=== PATIENT | female | born 1975 | race Caucasian/White ===

== ENCOUNTER 2017-10-01 19:26 | Emergency (ER) | payer MEDICAID ==
--- NOTE | 2017-10-01 20:05 | EDPHY ---
H & P Stated Complaint: Constipation Source: Patient Exam Limitations: No limitations - Personal History Current Tetanus/Diphtheria Vaccine: Unsure Current Tetanus Diphtheria and Acellular Pertussis (TDAP): Unsure - Medical/Surgical History Hx Asthma: No Hx Chronic Respiratory Disease: No Hx Diabetes: No Hx Cardiac Disease: Yes Hx Renal Disease: No Hx Cirrhosis: No Hx Alcoholism: No Hx HIV/AIDS: No Hx Splenectomy or Spleen Trauma: No Other PMH: hyperthyroidism, cardiomyopathy - Social History Smoking Status: Never smoked Time Seen by Provider: 10/01/17 20:04 HPI/ROS: HPI: This is a 42-year-old female who presents with Chief Complaint: Constipation Location: Abdomen Quality: Constipation Duration: 5 days Signs and Symptoms: no fever, no nausea, no vomiting, no hematemesis, no blood in stool, no abdominal bloating, no diarrhea, no back pain, no urinary symptoms , no vaginal bleeding/discharge, no indigestion, no chest pain, no shortness of breath Timing: Acute Severity: Moderate Context: Patient presents with complaints of not having a bowel movement x5 days despite taking [id number] laxatives. Patient reports that she has been back down to the bed for several months due to undiagnosed hyperthyroidism. She reports that every time she walked she experienced tachycardia. The recent return from [place] 2 weeks ago due to her not being able to receive treatment therapy. She reports that she is currently breast- feeding. She is drinking water but admits probably not enough. She is passing flatus. Denies any nausea, vomiting, diarrhea. No history of abdominal surgeries. Modifying Factors: Comment: ROS: see HPI Constitutional: No fever, no chills, no weight loss Eyes: No blurred vision Respiratory: No shortness of breath, no cough Cardiovascular: No chest pain, no palpitations Gastrointestinal: No nausea, no vomiting, no diarrhea, no hematemesis, no blood in stool Genitourinary: No dysuria, no blood in urine Extremities: No myalgias, no edema Neurologic: No weakness, no numbness Skin: No rashes, no petechiae Hematologic: No bruising, no bleeding MEDICAL/SURGICAL/SOCIAL HISTORY: Medical history: Hyperthyroidism, cardiomyopathy Surgical history: Denies Social history: with children. Family history noncontributory. CONSTITUTIONAL: Extremely well-appearing middle-aged female, awake and alert, no obvious distress HEENT: Atraumatic and normocephalic, PERRL, EOMI. Nares patent; no rhinorrhea; no nasal mucosal edema. Tympanic membranes clear. Oropharynx clear, no exudate and moist pink mucosa. Airway patent. No lymphadenopathy. No meningismus. Cardiovascular: Normal S1/S2, regular rate, regular rhythm, without murmur rub or gallop. PULMONARY/CHEST: Symmetrical and nontender. Clear to auscultation bilaterally. Good air movement. No accessory muscle usage. ABDOMEN: Soft, nondistended, nontender, no rebound, no guarding, no peritoneal signs, no masses or organomegaly. No CVAT. Bowel sounds heard x4 quadrants. EXTREMITIES: 2/2 pulses, strength 5/5, no deformities, no clubbing, no cyanosis or edema. NEUROLOGICAL: no focal neuro deficits. GCS 15. SKIN: Warm and dry, no erythema. no rash. Good capillary refill. (Andressa Loera) Constitutional: Initial Vital Signs Temperature (C) 37 C 10/01/17 19:35 Heart Rate 71 10/01/17 19:35 Respiratory Rate 16 10/01/17 19:35 Blood Pressure 124/59 H 10/01/17 19:35 O2 Sat (%) 99 10/01/17 19:35 O2 Delivery Mode Room Air Allergies/Adverse Reactions: tetracycline [Tetracycline] Allergy (Verified 04/19/09 13:55) Home Medications: Medication Instructions Recorded Non-Formulary 04/19/09 Methimazole 10/01/17 Medical Decision Making - Diagnostics Imaging Results: Imaging Impressions Abdomen X-Ray 10/01/17 20:05 Impression: Nonobstructive bowel gas pattern. No evidence of significant constipation. ED Course/Re-evaluation: KUB, IV fluids, enema ordered Patient's abdomen is soft and nontender. Doubt surgical process. KUB shows moderate stool burden. Given fleets enema with medium-sized bowel movement. Given 1 L normal saline. Given magnesium citrate to take home. This patient was seen under the supervision of my secondary supervising physician. I evaluated care for this patient independently. Discussed this patient with Dr. Lew who did not see the patient. (Andressa Loera) I did not see this patient while she was in the emergency department. However her care was discussed with the PA while the patient was in the department. I agree with treatment plan and management (Ok Lew) Differential Diagnosis: Differential diagnosis includes but is not limited to fecal impaction, constipation, obstipation, ileus, obstruction. (Andressa Loera) - Data Points Medications Given: Discontinued Medications Sodium Chloride (Ns) 1,000 mls @ 0 mls/hr IV EDNOW ONE; Wide Open PRN Reason: Protocol Stop: 10/01/17 20:44 Last Admin: 10/01/17 21:17 Dose: 1,000 mls Magnesium Citrate (Magnesium Citrate) 300 ml PO ONCE ONE Stop: 10/01/17 22:06 Last Admin: 10/01/17 22:21 Dose: 300 ml Departure - Departure Disposition: Home, Routine, Self-Care Clinical Impression: Constipation by delayed colonic transit Condition: Good Instructions: Polyethylene Glycol 3350 (By mouth), Magnesium Citrate (By mouth) , Constipation (ED) Additional Instructions: Take magnesium citrate 150 mL x1 when you arrive home this evening. If no bowel movement by this morning take the other 150 mL. Take MiraLax 17 g daily for the next 7 days. Consume a minimum of 8-10 glasses of water or electrolyte fluid replacement drinks that include Gatorade, Powerade, Pedialyte. Eat a bland diet for the next 48 hours and then slowly advance as tolerated. If symptoms have not improved in next 3-4 days, follow-up with your primary care provider. Referrals: Doron Ziegler, PAC [Primary Care Provider] - 2-3 days, if not improved
[2017-10-01] MEDS ORDERED: NS 1,000 ML IV ONE (20:43)
[2017-10-01] MEDS ORDERED: MAGNESIUM CITRATE 300 ML BOTTLE ONE (22:04)
[2017-10-01] MEDS ORDERED: MAGNESIUM CITRATE 300 ML BOTTLE PO ONE (22:05)
[2017-10-01 22:25] VITALS: BP 106/52
== END 2017-10-01 22:23 | disposition home or self-care (01) ==
DX: K59.01 Slow transit constipation (principal); E86.9 Volume depletion, unspecified

== ENCOUNTER 2017-10-04 19:24 | Emergency (ER) | payer MEDICAID ==
[2017-10-04] MEDS ORDERED: PEG 3350/NA SULF,BICARB,CL/KCL (GAVILYTE-G) 4000 ML BTL PO ONE (19:46)
--- NOTE | 2017-10-04 19:57 | EDPHY ---
H & P Stated Complaint: Exhaustion, Time Seen by Provider: 10/04/17 19:39 HPI/ROS: CHIEF COMPLAINT: Yellow HISTORY OF PRESENT ILLNESS: The patient is a 42-year-old female with a history of hypothyroidism who recently started methimazole. Her thyroid panel was checked yesterday and is now normalized however she and her are concerned that she looks a little jaundice. They wanted to come and have her bilirubin checked. Also she states that she was here few days ago for constipation and received an enema while she was here that worked temporarily. She was also taking magnesium citrate but states that this is not worked. She denies abdominal pain or bloating but states she has not pooped in 2 days. No vomiting. No fever. No urinary symptoms. No vaginal symptoms REVIEW OF SYSTEMS: Constitutional: denies: chills, fever, recent illness, recent injury EENTM: denies: blurred vision, double vision, nose congestion Respiratory: denies: cough, shortness of breath Cardiac: denies: chest pain, irregular heart rate, lightheadedness, palpitations Gastrointestinal/Abdominal: denies: abdominal pain, diarrhea, nausea, vomiting, blood streaked stools Genitourinary: denies: dysuria, frequency, hematuria, pain Musculoskeletal: denies: joint pain, muscle pain Skin: See HPI Neurological: denies: headache, numbness, paresthesia, tingling, dizziness, weakness Hematologic/Lymphatic: denies: blood clots, easy bleeding, easy bruising Immunologic/allergic: denies: HIV/AIDS, transplant EXAM: GENERAL: Well-appearing, well-nourished and in no acute distress. HEAD: Atraumatic, normocephalic. EYES: Pupils equal round and reactive to light, extraocular movements intact, sclera anicteric, conjunctiva are normal. ENT: TMs normal, nares patent, oropharynx clear without exudates. Moist mucous membranes. NECK: Normal range of motion, supple without lymphadenopathy or JVD. LUNGS: Breath sounds clear to auscultation bilaterally and equal. No wheezes rales or rhonchi. HEART: Regular rate and rhythm without murmurs, rubs or gallops. ABDOMEN: Soft, nontender, normoactive bowel sounds. No guarding, no rebound. No masses appreciated. BACK: No CVA tenderness, no spinal tenderness, step-offs or deformities EXTREMITIES: Normal range of motion, no pitting or edema. No clubbing or cyanosis. NEUROLOGICAL: Cranial nerves II through XII grossly intact. Normal speech, normal gait. 5/5 strength, normal movement in all extremities, normal sensation PSYCH: Normal mood, normal affect. SKIN: I do not appreciate any jaundice, Warm, dry, normal turgor, no visible rashes or lesions. Source: Patient Exam Limitations: No limitations - Personal History LMP (Females 10-55): Irregular Current Tetanus Diphtheria and Acellular Pertussis (TDAP): Yes - Medical/Surgical History Hx Asthma: No Hx Chronic Respiratory Disease: No Hx Diabetes: No Hx Cardiac Disease: Yes Hx Renal Disease: No Hx Cirrhosis: No Hx Alcoholism: No Hx HIV/AIDS: No Hx Splenectomy or Spleen Trauma: No Other PMH: hyperthyroidism, cardiomyopathy - Family History Significant Family History: No pertinent family hx - Social History Smoking Status: Never smoked Alcohol Use: Sober Drug Use: None Constitutional: Initial Vital Signs Temperature (C) 36.3 C 10/04/17 19:32 Heart Rate 78 10/04/17 19:32 Respiratory Rate 18 10/04/17 19:32 Blood Pressure 115/72 10/04/17 19:32 O2 Sat (%) 97 10/04/17 19:32 O2 Delivery Mode Room Air Allergies/Adverse Reactions: tetracycline [Tetracycline] Allergy (Verified 10/04/17 19:31) Home Medications: Medication Instructions Recorded Non-Formulary 04/19/09 Methimazole 10/01/17 Medical Decision Making ED Course/Re-evaluation: We discussed the patient's lab results. She is reassured. We discussed her anemia which may be responsible for some of her fatigue. We discussed iron supplementation although she has have probable constipation. She will try to eat more Iron containing foods and follow up with her primary for recheck. We discussed about indications for returning. Differential Diagnosis: Partial list of the Differential diagnosis considered include but were not limited to; constipation, anemia, hyperbilirubinemia, thyroid abnormality and although unlikely based on the history and physical exam, I also considered fever, infection. I discussed these differential diagnoses and the plan with the patient as well as the usual and expected course. The patient understands that the diagnosis is provisional and that in medicine we are not always correct and that further workup is often warranted. Usual and customary warnings were given. All of the patient's questions were answered. The patient was instructed to return to the emergency department should the symptoms at all worsen or return, otherwise to followup with the physician as we discussed. - Data Points Laboratory Results: Laboratory Results 10/04/17 20:26 18 20:26 10/04/17 10/04/17 10/04/17 20:26 20:26 20:26 WBC 9.22 10^3/uL 10^3/uL (3.80-9.50) RBC 4.50 10^6/uL 10^6/uL (4.18-5.33) Hgb 12.3 g/dL L g/dL (12.6-16.3) Hct 35.1 % L % (38.0-47.0) MCV 78.0 fL L fL (81.5-99.8) MCH 27.3 pg L pg (27.9-34.1) MCHC 35.0 g/dL g/dL (32.4-36.7) RDW 14.0 % % (11.5-15.2) Plt Count 443 10^3/uL H 10^3/uL (150-400) MPV 9.7 fL fL (8.7-11.7) Neut % (Auto) 59.9 % % (39.3-74.2) Lymph % (Auto) 31.5 % % (15.0-45.0) [place] % (Auto) 6.0 % % (4.5-13.0) Eos % (Auto) 2.2 % % (0.6-7.6) Baso % (Auto) 0.2 % L % (0.3-1.7) Nucleat RBC Rel Count 0.0 % % (0.0-0.2) Absolute Neuts (auto) 5.53 10^3/uL 10^3/uL (1.70-6.50) Absolute Lymphs (auto) 2.90 10^3/uL 10^3/uL (1.00-3.00) Absolute Monos (auto) 0.55 10^3/uL 10^3/uL (0.30-0.80) Absolute Eos (auto) 0.20 10^3/uL 10^3/uL (0.03-0.40) Absolute Basos (auto) 0.02 10^3/uL 10^3/uL (0.02-0.10) Absolute Nucleated RBC 0.00 10^3/uL 10^3/uL (0-0.01) Immature Gran % 0.2 % % (0.0-1.1) Immature Gran # 0.02 10^3/uL 10^3/uL (0.00-0.10) Sodium 140 mEq/L mEq/L (135-145) Potassium 4.0 mEq/L mEq/L (3.3-5.0) Chloride 108 mEq/L mEq/L (97-110) Carbon Dioxide 19 mEq/l L mEq/l (22-31) Anion Gap 13 mEq/L mEq/L (8-16) BUN 12 mg/dL mg/dL (7-23) Creatinine 0.5 mg/dL L mg/dL (0.6-1.0) Estimated GFR > 60 Glucose 93 mg/dL mg/dL (70-100) Calcium 9.9 mg/dL mg/dL (8.5-10.4) Total Bilirubin 0.8 mg/dL mg/dL (0.1-1.4) Conjugated Bilirubin 0.1 mg/dL mg/dL (0.0-0.5) Unconjugated Bilirubin 0.7 mg/dL mg/dL (0.0-1.1) AST 13 IU/L L IU/L (14-46) ALT 21 IU/L IU/L (9-52) Alkaline Phosphatase 50 IU/L IU/L (38-126) Total Protein 7.4 g/dL g/dL (6.3-8.2) Albumin 4.3 g/dL g/dL (3.5-5.0) Monoscreen NEGATIVE (NEGATIVE) Medications Given: Discontinued Medications Polyethylene Glycol/Electrolytes (Gavilyte - G) 4,000 ml PO ONCE ONE Stop: 10/04/17 19:47 Last Admin: 10/04/17 21:20 Dose: 4,000 ml Departure - Departure Disposition: Home, Routine, Self-Care Clinical Impression: Anemia Qualifiers: Anemia type: iron deficiency Iron deficiency anemia type: unspecified iron deficiency Qualified Code(s): D50.9 - Iron deficiency anemia, unspecified Constipation Qualifiers: Constipation type: unspecified constipation type Qualified Code(s): K59.00 - Constipation, unspecified Condition: Fair Instructions: Polyethylene Glycol 3350/Electrolytes (By mouth), Iron Rich Diet (ED), Anemia (ED) Referrals: Doron Ziegler, PAC [Primary Care Provider] - 2-3 days, call for appt.
[2017-10-04 20:55] LABS: PLATELET COUNT 443 10^3/uL (150-400)
[2017-10-04 21:28] VITALS: BP 98/55
== END 2017-10-04 21:29 | disposition home or self-care (01) ==
DX: D50.9 Iron deficiency anemia, unspecified (principal); K59.00 Constipation, unspecified

== ENCOUNTER 2017-10-16 14:03 | Emergency (ER) | payer MEDICAID ==
--- NOTE | 2017-10-16 14:49 | EDPHY ---
H & P Time Seen by Provider: 10/16/17 14:46 HPI/ROS: CHIEF COMPLAINT: Dehydration HISTORY OF PRESENT ILLNESS: Patient is a history of hyperthyroid, and relates history of cardiomyopathy from persistent tachycardia when she was 1st diagnosed. She presents with feeling dehydrated. She thinks this was triggered by spending some time in a hot car yesterday. At 2:00 a.m. Today she started feeling hot and then shaky and cold and very thirsty. Associated with a headache and some dizziness and lightheadedness. She continued to try and drink oral Gatorade and sports drinks but still feels dizzy and lightheaded. She has some nausea. Symptoms moderate and a little bit better with oral intake but not completely resolved. She had to have IV fluids twice in the past couple of months for similar symptoms. REVIEW OF SYSTEMS: Eye: no change in vision, chronic double vision unchanged ENT: no sore throat Cardiac: no chest pain or syncope Pulmonary: no cough or SOB Abdomen: HPI no abdominal pain or diarrhea Musculoskeletal: no back pain Skin: no rash Neuro: Mild headache Constitutional: HPI : no urinary symptoms A comprehensive 10 point review of systems is otherwise negative aside from elements mentioned in the history of present illness. PAST MEDICAL HISTORY: Hyperthyroid and cardiomyopathy Social history: Nonsmoker General Appearance: Alert and conversant, cooperative. Eyes: No scleral icterus. ENT, Mouth: Slightly dry mucous membranes. Respiratory: Normal respiratory effort, breath sounds equal, lungs are clear to auscultation. Cardiovascular: Regular rate and rhythm. Gastrointestinal: Abdomen is soft and non tender. Neurological: Alert, face symmetric, normal motor and sensory in extremities. Skin: Warm and dry, no rashes. Musculoskeletal: No peripheral edema. Psychiatric: Not agitated. Emergency Department course/MDM: Plan for IV normal saline hydration, Zofran 4 mg IV, check electrolytes. 1554: Electrolytes reviewed, plan for 2 L IV hydration and discharge. Feels better. Results discussed at 4:45 p.m.. Smoking Status: Never smoked Constitutional: Initial Vital Signs Temperature (C) 36.6 C 10/16/17 14:14 Heart Rate 80 10/16/17 14:14 Respiratory Rate 18 10/16/17 14:14 Blood Pressure 117/85 H 10/16/17 14:14 O2 Sat (%) 99 10/16/17 14:14 O2 Delivery Mode Room Air Allergies/Adverse Reactions: tetracycline [Tetracycline] Allergy (Verified 10/16/17 14:14) Home Medications: Medication Instructions Recorded Non-Formulary 04/19/09 Methimazole 10/01/17 Medical Decision Making Differential Diagnosis: Differential considered including but not limited to hyponatremia, hypoglycemia , renal failure, dehydration - Data Points Laboratory Results: Laboratory Results 10/16/17 15:10 10/16/17 15:10 10/16/17 10/16/17 10/16/17 15:10 15:10 15:10 WBC 7.77 10^3/uL 10^3/uL (3.80-9.50) RBC 4.61 10^6/uL 10^6/uL (4.18-5.33) Hgb 12.2 g/dL L g/dL (12.6-16.3) Hct 35.9 % L % (38.0-47.0) MCV 77.9 fL L fL (81.5-99.8) MCH 26.5 pg L pg (27.9-34.1) MCHC 34.0 g/dL g/dL (32.4-36.7) RDW 13.8 % % (11.5-15.2) Plt Count 556 10^3/uL H 10^3/uL (150-400) MPV 9.2 fL fL (8.7-11.7) Neut % (Auto) 58.1 % % (39.3-74.2) Lymph % (Auto) 33.3 % % (15.0-45.0) [place] % (Auto) 6.7 % % (4.5-13.0) Eos % (Auto) 1.5 % % (0.6-7.6) Baso % (Auto) 0.3 % % (0.3-1.7) Nucleat RBC Rel Count 0.0 % % (0.0-0.2) Absolute Neuts (auto) 4.51 10^3/uL 10^3/uL (1.70-6.50) Absolute Lymphs (auto) 2.59 10^3/uL 10^3/uL (1.00-3.00) Absolute Monos (auto) 0.52 10^3/uL 10^3/uL (0.30-0.80) Absolute Eos (auto) 0.12 10^3/uL 10^3/uL (0.03-0.40) Absolute Basos (auto) 0.02 10^3/uL 10^3/uL (0.02-0.10) Absolute Nucleated RBC 0.00 10^3/uL 10^3/uL (0-0.01) Immature Gran % 0.1 % % (0.0-1.1) Immature Gran # 0.01 10^3/uL 10^3/uL (0.00-0.10) Sodium 142 mEq/L mEq/L (135-145) Potassium 3.9 mEq/L mEq/L (3.3-5.0) Chloride 107 mEq/L mEq/L (97-110) Carbon Dioxide 22 mEq/l mEq/l (22-31) Anion Gap 13 mEq/L mEq/L (8-16) BUN 10 mg/dL mg/dL (7-23) Creatinine 0.6 mg/dL mg/dL (0.6-1.0) Estimated GFR > 60 Glucose 103 mg/dL H mg/dL (70-100) Calcium 9.9 mg/dL mg/dL (8.5-10.4) Beta HCG, Qual NEGATIVE Medications Given: Discontinued Medications Sodium Chloride (Ns) 1,000 mls @ 0 mls/hr IV EDNOW ONE; Wide Open PRN Reason: Protocol Stop: 10/16/17 14:58 Last Admin: 10/16/17 15:21 Dose: 1,000 mls Sodium Chloride (Ns) 1,000 mls @ 0 mls/hr IV EDNOW ONE; Wide Open PRN Reason: Protocol Stop: 10/16/17 15:54 Last Admin: 10/16/17 16:15 Dose: 1,000 mls Ondansetron HCl (Zofran) 4 mg IVP EDNOW ONE Stop: 10/16/17 14:58 Last Admin: 10/16/17 15:21 Dose: 4 mg Departure - Departure Disposition: Home, Routine, Self-Care Clinical Impression: Dehydration Condition: Good Instructions: Dehydration (ED) Referrals: Doron Ziegler, PAC [Primary Care Provider] - As per Instructions
[2017-10-16] MEDS ORDERED: NS 1,000 ML IV ONE ×2 (14:57→15:53)
[2017-10-16] MEDS ORDERED: ONDANSETRON 4 MG/2 ML VIAL IVP ONE (14:57)
[2017-10-16 15:32] LABS: PLATELET COUNT 556 10^3/uL (150-400)
[2017-10-16 17:02] VITALS: BP 92/66
== END 2017-10-16 17:08 | disposition home or self-care (01) ==
DX: E86.9 Volume depletion, unspecified (principal)
CPT/HCPCS: 96374; J2405

== ENCOUNTER 2017-10-18 13:35 | Inpatient (IN) | payer MEDICAID ==
--- NOTE | 2017-10-18 13:46 | EDPHY ---
H & P Time Seen by Provider: 10/18/17 13:45 HPI/ROS: CHIEF COMPLAINT: Chest pain HISTORY OF PRESENT ILLNESS: Patient was seen by me 2 days ago for dehydration. She was feeling well for 24 hr, and then started feeling more dehydrated and dizzy and lightheaded. This morning she woke up feeling very tachycardiac with heart racing and had multiple episodes of dizziness and almost passing out. 15 min before arrival she had central chest pain described as squeezing associated with shortness of breath and racing heart rate. Symptoms moderate, not exertional or positional. Chest squeezing does not radiate. REVIEW OF SYSTEMS: Eye: no change in vision ENT: no sore throat Cardiac: HPI Pulmonary: no cough or SOB Abdomen: no vomiting, diarrhea, abdominal pain Musculoskeletal: no back pain Skin: no rash Neuro: no headache Constitutional: no fever : no urinary symptoms A comprehensive 10 point review of systems is otherwise negative aside from elements mentioned in the history of present illness. PAST MEDICAL HISTORY: Includes hyperthyroid on methimazole, she states cardiomyopathy from prolonged tachycardia at the time she was 1st diagnosed Social history: Nonsmoker, no recent travel or immobilization. General Appearance: Alert and conversant, cooperative. Eyes: No scleral icterus. ENT, Mouth: Normal mucous membranes. Respiratory: Normal respiratory effort, breath sounds equal, lungs are clear to auscultation. Cardiovascular: Regular rate and rhythm. Tachycardia without murmur. Gastrointestinal: Abdomen is soft and non tender. Neurological: Alert, face symmetric, normal motor and sensory in extremities. Skin: Warm and dry, no rashes. Musculoskeletal: No peripheral edema. No calf tenderness. Psychiatric: Not agitated. Emergency Department course/MDM: Discussed with Irene at 1418, admit hospitalist. He personally reviewed the EKG. test negative yesterday. Normal saline 1 L IV. 1456: Results discussed and recommendation of occupational therapist's assistant for inpatient evaluation, patient agreeable. Discussed with Jani 145Jose. Smoking Status: Never smoked Constitutional: Initial Vital Signs Temperature (C) 36.8 C 10/18/17 13:37 Heart Rate 107 H 10/18/17 13:37 Respiratory Rate 18 10/18/17 13:37 Blood Pressure 107/82 H 10/18/17 13:37 O2 Sat (%) 99 10/18/17 13:37 O2 Delivery Mode Room Air Allergies/Adverse Reactions: tetracycline [Tetracycline] Allergy (Verified 10/18/17 13:36) Home Medications: Medication Instructions Recorded Non-Formulary 04/19/09 Methimazole 10/01/17 Medical Decision Making - Diagnostics EKG Interpretation: 12-lead EKG interpreted by me; official reading is in trace master. My interpretation is sinus rhythm rate [address] depression 1514: 12-lead EKG interpreted by me; official reading is in trace master. My interpretation is sinus rhythm, inferior lateral T-wave flattening, nonspecific rate 73. Imaging Results: Imaging Impressions Chest X-Ray 10/18/17 14:00 Impression: Possible airways disease. No pneumonia. Imaging: I viewed and interpreted images myself Differential Diagnosis: Differential diagnosis considered for chest pain including but not limited to myocardial ischemia, aortic dissection, pericarditis, pulmonary embolus, chest wall pain, pleural inflammation and pulmonary infectious causes. - Data Points Laboratory Results: Laboratory Results 10/18/17 13:50 10/18/17 13:50 10/18/17 10/18/17 10/18/17 14:00 13:56 13:50 WBC RBC Hgb Hct MCV MCH MCHC RDW Plt Count MPV Neut % (Auto) Lymph % (Auto) [place] % (Auto) Eos % (Auto) Baso % (Auto) Nucleat RBC Rel Count Absolute Neuts (auto) Absolute Lymphs (auto) Absolute Monos (auto) Absolute Eos (auto) Absolute Basos (auto) Absolute Nucleated RBC Immature Gran % Immature Gran # D-Dimer 0.41 ug/mLFEU ug/mLFEU (0.00-0.50) Sodium 138 mEq/L mEq/L (135-145) Potassium 3.8 mEq/L mEq/L (3.3-5.0) Chloride 107 mEq/L mEq/L (97-110) Carbon Dioxide 22 mEq/l mEq/l (22-31) Anion Gap 9 mEq/L mEq/L (8-16) BUN 6 mg/dL L mg/dL (7-23) Creatinine 0.6 mg/dL mg/dL (0.6-1.0) Estimated GFR > 60 Glucose 98 mg/dL mg/dL (70-100) Calcium 10.6 mg/dL H mg/dL (8.5-10.4) POC Troponin I 0.00 ng/mL ng/mL (0.00-0.08) 10/18/17 13:50 WBC 8.39 10^3/uL 10^3/uL (3.80-9.50) RBC 4.93 10^6/uL 10^6/uL (4.18-5.33) Hgb 13.0 g/dL g/dL (12.6-16.3) Hct 38.8 % % (38.0-47.0) MCV 78.7 fL L fL (81.5-99.8) MCH 26.4 pg L pg (27.9-34.1) MCHC 33.5 g/dL g/dL (32.4-36.7) RDW 14.0 % % (11.5-15.2) Plt Count 570 10^3/uL H 10^3/uL (150-400) MPV 9.5 fL fL (8.7-11.7) Neut % (Auto) 64.5 % % (39.3-74.2) Lymph % (Auto) 27.9 % % (15.0-45.0) [place] % (Auto) 6.2 % % (4.5-13.0) Eos % (Auto) 1.0 % % (0.6-7.6) Baso % (Auto) 0.2 % L % (0.3-1.7) Nucleat RBC Rel Count 0.0 % % (0.0-0.2) Absolute Neuts (auto) 5.41 10^3/uL 10^3/uL (1.70-6.50) Absolute Lymphs (auto) 2.34 10^3/uL 10^3/uL (1.00-3.00) Absolute Monos (auto) 0.52 10^3/uL 10^3/uL (0.30-0.80) Absolute Eos (auto) 0.08 10^3/uL 10^3/uL (0.03-0.40) Absolute Basos (auto) 0.02 10^3/uL 10^3/uL (0.02-0.10) Absolute Nucleated RBC 0.00 10^3/uL 10^3/uL (0-0.01) Immature Gran % 0.2 % % (0.0-1.1) Immature Gran # 0.02 10^3/uL 10^3/uL (0.00-0.10) D-Dimer Sodium Potassium Chloride Carbon Dioxide Anion Gap BUN Creatinine Estimated GFR Glucose Calcium POC Troponin I Medications Given: Discontinued Medications Sodium Chloride (Ns) 1,000 mls @ 0 mls/hr IV EDNOW ONE; Wide Open PRN Reason: Protocol Stop: 10/18/17 14:23 Last Admin: 10/18/17 14:26 Dose: 1,000 mls Point of Care Test Results: Chemistry 10/18/17 13:56 POC Troponin I 0.00 ng/mL ng/mL (0.00-0.08) Departure - Departure Disposition: [facility] Inpatient Acute Clinical Impression: Near syncope Chest pain Qualifiers: Chest pain type: unspecified Qualified Code(s): R07.9 - Chest pain, unspecified Condition: Good
--- NOTE | 2017-10-18 13:59 | CPEKG ---
Heart Rate: 97 RR Interval: 619 P-R Interval: 176 QRSD Interval: 82 QT Interval: 336 QTC Interval: 427 P [place]: 81 QRS [place]: 41 T Wave [place]: -87 EKG Severity - ABNORMAL ECG - EKG Impression: SINUS RHYTHM EKG Impression: ABNRM R PROG, CONSIDER ASMI OR LEAD PLACEMENT Electronically Signed By: Zafar Ponce 18-Oct-2017 14:17:52
[2017-10-18 14:01] LABS: PLATELET COUNT 570 10^3/uL (150-400)
[2017-10-18] MEDS ORDERED: NS 1,000 ML IV ONE (14:22)
[2017-10-18] MEDS ORDERED: ONDANSETRON DISINTEGRATING 4 MG TAB PO PRN (15:05)
[2017-10-18] MEDS ORDERED: ACETAMINOPHEN 325 MG TAB PO PRN (15:05)
[2017-10-18] MEDS ORDERED: ONDANSETRON 4 MG/2 ML VIAL IVP PRN (15:05)
[2017-10-18] MEDS ORDERED: NITROGLYCERIN 0.4 MG BTL SL PRN (15:10)
[2017-10-18] MEDS ORDERED: NS W/ 20 KCl/L 1,000 ML IV SCH (15:15)
--- NOTE | 2017-10-18 15:16 | CPEKG ---
Heart Rate: 73 RR Interval: 822 P-R Interval: 176 QRSD Interval: 100 QT Interval: 412 QTC Interval: 454 P Agency: 81 QRS Agency: 34 T Wave Agency: -41 EKG Severity - BORDERLINE ECG - EKG Impression: SINUS RHYTHM EKG Impression: BORDERLINE T ABNORMALITIES, DIFFUSE LEADS Electronically Signed By: Zafar Ponce 18-Oct-2017 15:27:39
[2017-10-18] MEDS ORDERED: ASPIRIN 81 MG CHEWABLE TAB ONE (15:35)
--- NOTE | 2017-10-18 16:18 | PDGENHP ---
History and Physical - Chief Complaint Acute chest pain - History of Present Illness Primary care provider: Dr. Muñiz HPI: 42-year-old female presents with acute chest pain characterized as a squeezing sensation located in her mid chest with associated shortness of breath , sensation of racing heart, dizziness and lightheadedness. Patient reports that the onset of the chest pain was approximately 15 min prior to arrival and duration has been persistent thereafter. She currently rates it as a 1/10 pain. She reports that prior to her onset of chest pain, she had been experiencing a lightheaded sensation which made her feel like she was going to pass out. She asked her to bring her to the emergency department for medical evaluation, as he was wheeling her wheelchair towards the hospital, she began experiencing the chest discomfort. She reports the chest discomfort is exacerbated by deep inspiration and alleviated by shallow breathing. It should be noted that the patient reports that she had had normal health up until approximately 8 months ago, when January of 2017 she began experiencing significant symptomatic sensation of racing heart as well as lightheadedness with any ambulation. She underwent medical evaluation in [facility], where she was living at that time, they told her that she had a left-sided thyroid mass, but did not engage in any additional evaluation. Because the patient felt lightheaded with any ambulation, she began utilizing a wheelchair, and she reports that she has predominantly become wheelchair bound since that time and has continued to utilize this as her sole means of mobilization for the past 8 months. She does endorse that she is able to ambulate, but she feels generally weak and deconditioned when she attempts to do so. She entered the [facility] in August of 2017, and she reports that she immediately sought medical attention at [facility] in [place], [place]. She had a 4 day hospitalization which included an echocardiogram as well as thyroid function test. 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 She then moved to [place], sought medical attention at [facility], and was placed on methimazole and propranolol. She reports that her symptoms of heart racing improved with this medication combination and she was seen in follow-up for repeat thyroid function test. She subsequently was told to discontinue the propranolol, and continue the methimazole. She was scheduled for a follow-up appointment at [facility] for October 31 and received a referral to endocrinology, who could not see her for approximately 2 months time. History Information - Allergies/Home Medication List Allergies/Adverse Reactions: tetracycline [Tetracycline] Allergy (Verified 10/18/17 15:53) Hives Home Medications: Herbals/Supplements -Info Only 1 ea PO DAILY 10/18/17 [Last Taken Unknown] Methimazole [Tapazole 5MG (*)] 20 mg PO BID@,10/18/17 [Last Taken 10/18/17] Selenium [Selenium 200mcg (*)] 200 mcg PO DAILY 10/18/17 [Last Taken 10/18/17] I have personally reviewed and updated: family history, medical history, social history, surgical history - Past Medical History CHF (Reportedly could tachycardia induced cardiomyopathy with ejection fraction of 40%, cardiac MRI performed) Additional medical history: Reportedly left-sided vascular thyroid mass, reported hyperthyroidism - Surgical History Additional surgical history: Rhinoplasty - Family History Additional family history: Mother with thyroid cancer, myocardial infarction in her 40s, mitral valve prolapse; paternal second-degree relative with congestive heart failure in his 40s - Social History Smoking Status: Never smoked Alcohol Use: None Drug Use: None Additional social history: Patient lives locally with her and 4 kids, she is wheelchair-bound Review of Systems Review of Systems: ROS: 10pt was reviewed & negative except for what was stated in HPI & below Constitutional: Reports: weakness Cardiac: Reports: chest pain, lightheadedness, palpitations Respiratory: Reports: shortness of breath Physical Exam Physical Exam: Temp Pulse Resp BP Pulse Ox 36.8 C 94 18 119/78 100 10/18/17 13:37 10/18/17 15:58 10/18/17 15:58 10/18/17 15:58 10/18/17 15:58 Constitutional: no apparent distress, appears nourished, not in pain, No uncomfortable Eyes: PERRL, anicteric sclera, EOMI Ears, Nose, Mouth, Throat: moist mucous membranes, hearing normal, ears appear normal, no oral mucosal ulcers Cardiovascular: regular rate and rhythym, no murmur, rub, or gallop, No edema Respiratory: no respiratory distress, no rales or rhonchi, clear to auscultation Gastrointestinal: normoactive bowel sounds, soft, non-tender abdomen, no palpable masses Musculoskeletal: other (Mildly atrophied bilateral lower extremity calf muscles comma motor strength is 5/5 bilateral lower extremities) Neurologic: AAOx3, sensation intact bilaterally, No weakness Psychiatric: not encephalopathic, thought process linear, anxious, No agitated Lab Data & Imaging Review 10/18/17 13:50 10/18/17 13:50 WBC 8.39 10^3/uL (3.80-9.50) 10/18/17 13:50 RBC 4.93 10^6/uL (4.18-5.33) 10/18/17 13:50 Hgb 13.0 g/dL (12.6-16.3) 10/18/17 13:50 Hct 38.8 % (38.0-47.0) 10/18/17 13:50 MCV 78.7 fL (81.5-99.8) L 10/18/17 13:50 MCH 26.4 pg (27.9-34.1) L 10/18/17 13:50 MCHC 33.5 g/dL (32.4-36.7) 10/18/17 13:50 RDW 14.0 % (11.5-15.2) 10/18/17 13:50 Plt Count 570 10^3/uL (150-400) H 10/18/17 13:50 MPV 9.5 fL (8.7-11.7) 10/18/17 13:50 Neut % (Auto) 64.5 % (39.3-74.2) 10/18/17 13:50 Lymph % (Auto) 27.9 % (15.0-45.0) 10/18/17 13:50 Barnes % (Auto) 6.2 % (4.5-13.0) 10/18/17 13:50 Eos % (Auto) 1.0 % (0.6-7.6) 10/18/17 13:50 Baso % (Auto) 0.2 % (0.3-1.7) L 10/18/17 13:50 Nucleat RBC Rel Count 0.0 % (0.0-0.2) 10/18/17 13:50 Absolute Neuts (auto) 5.41 10^3/uL (1.70-6.50) 10/18/17 13:50 Absolute Lymphs (auto) 2.34 10^3/uL (1.00-3.00) 10/18/17 13:50 Absolute Monos (auto) 0.52 10^3/uL (0.30-0.80) 10/18/17 13:50 Absolute Eos (auto) 0.08 10^3/uL (0.03-0.40) 10/18/17 13:50 Absolute Basos (auto) 0.02 10^3/uL (0.02-0.10) 10/18/17 13:50 Absolute Nucleated RBC 0.00 10^3/uL (0-0.01) 10/18/17 13:50 Immature Gran % 0.2 % (0.0-1.1) 10/18/17 13:50 Immature Gran # 0.02 10^3/uL (0.00-0.10) 10/18/17 13:50 D-Dimer 0.41 ug/mLFEU (0.00-0.50) 10/18/17 14:00 Sodium 138 mEq/L (135-145) 10/18/17 13:50 Potassium 3.8 mEq/L (3.3-5.0) 10/18/17 13:50 Chloride 107 mEq/L (97-110) 10/18/17 13:50 Carbon Dioxide 22 mEq/l (22-31) 10/18/17 13:50 Anion Gap 9 mEq/L (8-16) 10/18/17 13:50 BUN 6 mg/dL (7-23) L 10/18/17 13:50 Creatinine 0.6 mg/dL (0.6-1.0) 10/18/17 13:50 Estimated GFR > 60 10/18/17 13:50 Glucose 98 mg/dL (70-100) 10/18/17 13:50 Calcium 10.6 mg/dL (8.5-10.4) H 10/18/17 13:50 POC Troponin I 0.00 ng/mL (0.00-0.08) 10/18/17 15:13 Troponin I Cancelled 10/18/17 15:05 Lipase 111 IU/L (23-300) 10/18/17 15:31 Free T4 1.49 ng/dL (0.59-2.19) 10/18/17 15:05 Free T3 3.88 pg/mL (2.77-5.27) 10/18/17 15:05 Visualized and Interpreted Chest x-ray results: Yes Chest X-Ray results: no infiltrate Visualized and Interpreted EKG results: Yes EKG Interpretation: Positive for: other (ST depressions in the inferolateral leads, poor R-wave progression in lead V2 and V3) Assessment & Plan Assessment: 42-year-old female presents with acute chest pain, tachycardia, lightheadedness Plan: 1. Chest pain. Acute, new problem this provider, further workup indicated. I suspect the patient is experiencing symptomatic tachycardia in the setting of hyperthyroidism and recent discontinuation of beta-jose, as well as a likely somatic syndrome such as POTS or an MEN diagnosis -that being said, the patient does have a significant family history for myocardial infarction and with her ST depressions on EKG, she warrants immediate cardiovascular risk stratification -discussed with Dr. Zafar Ponce, he reports to me that he has discussed with Dr. Jv Bonilla, he has recommended monitoring, cycling cardiac enzyme comma placement in PCU -will check echocardiogram to gauge ejection fraction, look for focal wall motion abnormalities, evaluate for any evidence of pericarditis -will get Lexiscan stress test in a.m. As patient reports that she did not receive any stress test when she was hospitalized in [place] -she has received aspirin in the emergency department, will hold on additional treatment for acute coronary syndrome, as I suspect that her EKG abnormalities are secondary to her cardiomyopathy as the patient describes EKG changes while she was at [facility] -continue to monitor on telemetry -if any the above abnormal, consult with Cardiology immediately 2. Hyperthyroidism. Patient with a reportedly hyperthyroid, tachycardia induced cardiomyopathy, potentially contributing to her symptoms over the past 8 months, currently under treatment with methimazole -patient's tachycardia has improved with resolution of her symptoms, hold on restarting propranolol at this time -continue methimazole, recheck thyroid function test -given her intermittent comma inexplicable increases in heart rate, as well as unusual constellation of very debilitating symptoms over the past 8 months, consider MEN concomitant malignancy and check metanephrines for pheochromocytoma -also check ultrasound of thyroid, given that patient could have a constellation of malignancies including thyroid which would warrant immediate biopsy Diet. Regular, NPO after midnight Prophylaxis. Low risk patient, SCDs Code. Full Disposition. Anticipated discharge is 10/19, pending further workup as outlined above. Order outside records from [facility] in [place], [place] to determine baseline ejection fraction, previous cardiovascular workup.
[2017-10-18] MEDS ORDERED: PANTOPRAZOLE SODIUM 40 MG TAB PO ONE (17:47)
[2017-10-18] MEDS: METHIMAZOLE 5 MG TAB PO SCH (21:16)
[2017-10-19 04:58] LABS: PLATELET COUNT 447 10^3/uL (150-400)
--- NOTE | 2017-10-19 09:14 | CPEKG ---
Heart Rate: 74 RR Interval: 811 P-R Interval: 180 QRSD Interval: 88 QT Interval: 396 QTC Interval: 440 P [place]: 75 QRS [place]: 39 T Wave [place]: -13 EKG Severity - ABNORMAL ECG - EKG Impression: SINUS RHYTHM EKG Impression: PROBABLE ANTEROSEPTAL INFARCT, AGE INDETERM EKG Impression: BORDERLINE T ABNORMALITIES, INFERIOR LEADS Electronically Signed By: James Valle 22-Oct-2017 11:09:31
[2017-10-19] MEDS: ASPIRIN EC 325 MG TAB PO SCH (09:15)
[2017-10-19] MEDS: PANTOPRAZOLE SODIUM 40 MG TAB PO SCH (09:15)
[2017-10-19] MEDS ORDERED: REGADENOSON 0.4 MG/5 ML SYR IVP ONE (09:59)
[2017-10-19] MEDS ORDERED: LACTULOSE 20 GM/30 ML UDCUP PO PRN (11:38)
[2017-10-19] MEDS ORDERED: POLYETHYLENE GLYCOL 3350 17 GM PKT PO PRN (11:38)
[2017-10-19] MEDS ORDERED: BISACODYL 10 MG SUPP PR PRN (11:38)
[2017-10-19] MEDS ORDERED: MAGNESIUM HYDROXIDE 30 ML UDCUP PO PRN (11:38)
--- NOTE | 2017-10-19 12:15 | CPR ---
[f rep st] NONINVASIVE CARDIAC PROCEDURE REPORT DATE OF PROCEDURE: 10/19/2017 PROCEDURE PERFORMED: Pharmacologic nuclear stress test. INDICATION FOR PROCEDURE: Chest pain with abnormal baseline ECG. DESCRIPTION OF PROCEDURE: After informed consent was obtained for Lexiscan nuclear stress test, base line ECG was performed demonstrating sinus rhythm with poor R-wave progression and T-wave inversions in the inferior leads, as well as V4. Patient was infused with Lexiscan. Patient had no complaints of chest pain or chest pressure. She d id feel somewhat lightheaded, which is consistent with Lexiscan infusion. TC 99M Sestamibi was injec katey at peak hyperuremia. Peak blood pressure of 119/83. Peak heart rate of 139 beats per minute. There were no ischemic ECG changes noted compared to baseline. CONCLUSION: Negative Lexiscan ECG tracings. Nuclear imaging pending. /[id number]/MODL
--- NOTE | 2017-10-19 12:19 | ASMTCMCOM ---
CM Note CM Note Notes: Pt admitted for CP. Pt recently moved back from [facility] in August. She reported to RN that she has been W/C bound due to shortness of breath since .Met with pt, and 3 of her 4 children. They have not been able to afford a place to stay in the area. They had been staying in a hotel but recently bought an RV that they plan to live in. They do yet lnow where they will park it. They are receiving food stamps and WIC.They have been refused help from [employer] b/c pt's not allowed to work b/c he does not have a green card. Pt and appear to have no java consultant plans pending resolution of pt's health symptoms. CM will continue to follow. Date Signed: 10/19/2017 12:19 PM Electronically Signed By:Cleopatra Saravia LCSW
[2017-10-19] MEDS: METHIMAZOLE 5 MG TAB PO SCH ×2 (12:56→21:44)
--- NOTE | 2017-10-19 14:14 | WOCRNPDOC ---
PIYUSHCRAimee Advanced Assessment Note - Skin Integrity Problem, Advanced Assess Sacrum Pressure Injury Dressing Type: Open to Air Sandrine Wound Tissue: Blanching, Painful/Tender Sandrine Wound Swelling: None Wound Bed Color: [place], Red Wound Edges: Well Defined Site Measurement - Head-to-Toe Length X Width X Depth (cm): non-blanchinx0.4xintact. [id number] Pressure Injury Stage: Stage 1 Pressure Injury Present on Admit: Yes Skin Integrity Problem Comment: Patient states she has been wheelchair bound, and largely bed bound since January 2017. In that time, she states she has also lost about 40 pounds. Patient rolled to her left side unassisted. She states that her "bottom" has been increasingly tender in the last several weeks but that she has never had an open wound to the area. Patient's pajama pants pulled back to reveal small area of non-blanching, tender but intact skin. This area is consistant with a stage 1 pressure injury. This area is surrounded by a larger, 6x6cm area of blanching erythema. Pressure relieving measures implemented. Patient advised to shift weight frequently. She states she is unable to lie on her side for any length of time related to her difficulty with breathing. Reminded patient that the movements don't have to be large, but frequent. All questions answered. Wound care will not continue to round on this wound. Please reconsult if wound opens.
--- NOTE | 2017-10-19 14:17 | HOSPPROG ---
Hospitalist Progress Note Assessment/Plan: 42-year-old female presents with acute chest pain, tachycardia, lightheadedness Plan: # Chest pain: at this time etiology unclear, stress test performed and initial read showing defect versus thinning in the anterior wall with plan for rest portion in am. Discussed with cardiology. # ? Cardiomyopathy: reported by patient, old records that were obtained did not include echo report. Repeat echo ordered. She does not appear to have acute CHF # hyperthyroidism: on methimazole with T4/T3 within normal limits on arrival. She has not established care with endocrinology at this time and will have to help get this set up prior to dc # thyroid nodules: with at least one concerning for malignancy and patient has been told that she needs FNA which has not been performed at this point. As above, will work to get patient set up with endocrinology # deconditioning: patient currently wheelchair bound due to dizzyness and feeling deconditioned, will have pt/ot evaluate. This is possibly related to issues as above but unclear currently, will attempt to get further records. She has had extensive w/u at other hospitals, some of which results I have including mostly negative autoimmune w/u (EVELYNE +), negative spep/upep, normal catecholamine levels, normal serum/urine immunofixation, cortisol stim normal # IP status, given multiple active issues Patient new to my care. Old records reviewed and summarized as above. care plan reviewed with cardiology. Subjective: no significant overnight events, patient has had continued slight chest discomfort Objective: Vital Signs Temp Pulse Resp BP Pulse Ox 36.7 C 92 14 108/53 L 98 10/19/17 11:12 10/19/17 11:12 10/19/17 11:12 10/19/17 11:12 10/19/17 11:12 Laboratory Results 10/19/17 04:20 10/19/17 04:20 10/18/17 10/19/17 10/20/17 05:59 05:59 05:59 Intake Total 750 Balance 750 awake alert anicteric op lcear rrr no mrg ctab soft nt nd no cce warm dry well perfused oriented appropriate ICD10 Worksheet Patient Problems: Problems Problem Status Onset Chest pain Acute Near syncope Acute
--- NOTE | 2017-10-19 14:43 | ECHO ---
[email or web address] [address] [address] Main: [phone] Fax: Transthoracic Echocardiogram Name: RADHA GARCIA MR#: [id number] Study Date: 10/19/2017 Study Time: 12:25 PM Date of : 1975 Age: 42 year(s) Height: 175.3 cm (69 in.) Weight: 52.62 kg (116 lb.) BSA: 1.64 m2 Gender: Female Examination: Echo Indication: Evaluate for cardiomyopathy Image Quality: Adequate Contrast: Requested by: Sergey Gunter BP: 96 mmHg/58 mmHg Heart Rate: Rhythm: Indication: Evaluate for cardiomyopathy Procedure Staff Forming Department End Finder: Eva Malone RDCS Reading Physician: Merritt Saleh MD Requesting Provider: Conclusions: Normal size left ventricle. No LV hypertrophy. Normal global systolic LV function. EF is 53 %. No regional wall motion abnormality. Normal diastolic LV function. Normal size right ventricle. Normal RV function. The left atrium is normal in size. The right atrium is normal in size. The pulmonary artery pressure is normal. The aorta is normal. No pericardial effusion. Measurements: Chambers Valvular Assessment AV/MV Valvular Assessment TV/PV Normal Normal Normal Name Value Range Name Value Range Name Value Range Ao Bri (2D): 2.7 cm (1.4 cm-2.6 AV meanP mmHg ( - ) PV Vmax: 0.73 m/s (0.6 m/s-0.9 cm) PAVAN (VTI): 2.0 cm ( - ) m/s) IVSd (2D): 0.7 cm (0.6 cm-1.1 MV E Vmax: 0.65 m/s ( - ) PV PGmax: 2 mmHg ( - ) cm) MV A Vmax: 0.49 m/s ( - ) LVDd (2D): 4.1 cm (3.9 cm-5.3 MV E/A: 1.33 ( - ) cm) MV PHT: 0.056 s ( - ) LVDs (2D): 3.0 cm (2.1 cm-4 cm) MVA (PHT): 3.9 s ( - ) LVPWd (2D): 0.7 cm ( - ) LVOTd 1.9 cm 1.9 cm mm LVEF (MOD4): 53 % (>=55 %) Patient: RADHA GARCIA Study Date: 10/19/2017 Page 1 of 2 12:25 PM RVDd(2D): 2.2 cm (1.9 cm-3.8 cmmm) Continued Measurements: Chambers Valvular Assessment AV/MV Valvular Assessment TV/PV Name Value Name Value Name Value LADs: 2.1 cm MV DecTime: 180 m/s CVP (est.): 5 mmHg LADs Lon.2 cm MV E' Septal: 0.08 m/s LA Area: 11.7 cm2 MV E/E' Septal: 8.20 MV E/E' Lateral: 6.20 Additional Vessels Name Value Ao Ascendin.8 cm Findings: Left Ventricle: Normal size left ventricle. No LV hypertrophy. Normal global systolic LV function. EF is 53 %. No regional wall motion abnormality. Normal diastolic LV function. Right Ventricle: Normal size right ventricle. Normal RV function. Left Atrium: The left atrium is normal in size. Right Atrium: The right atrium is normal in size. Mitral Valve: The mitral valve is normal in appearance and function. Trivial mitral valve regurgitation. No mitral stenosis is present. Aortic Valve: The aortic valve is tri-leaflet. There is no significant aortic valve regurgitation. No aortic valve stenosis is present. Tricuspid Valve: The tricuspid valve is normal in appearance and function. Trivial tricuspid valve regurgitation. The pulmonary artery pressure is normal. Pulmonic Valve: The pulmonic valve is normal in appearance and function. There is no pulmonic regurgitation seen. Aorta: The aorta is normal. Normal size aortic root measuring 2.7 cm. Normal size ascending aorta measuring 2.8 cm. Pericardium: No pericardial effusion. No pleural effusion. Exam Comments: Some images are off axis, patient is very thin. (No Signature Object) Patient: RADHA GARCIA Study Date: 10/19/2017 Page 2 of 2 12:25 PM [id number]
[2017-10-19] MEDS ORDERED: ASPIRIN 81 MG CHEWABLE TAB PO ONE (15:13)
--- NOTE | 2017-10-19 17:02 | GCON ---
[f rep st] CONSULTATION CARDIOLOGY CONSULTATION DATE OF CONSULTATION: 10/19/2017 INDICATION FOR CONSULT: Chest pain, history of cardiomyopathy. HISTORY OF PRESENT ILLNESS: The patient is a pleasant 42-year-old female who has an extensive past medical that began in January of 2017. Prior to 2016, she was healthy with no medical issues on no medical therapy. In January 2017 while living in [facility] with her , she began to experience rapid heart beat that she described as "racing." This was associated with near- syncope and collapse prompting her to seek medical attention in [facility]. She ultimately spent 6 weeks in the hospital in [facility] with no clear underlying diagnosis with the exception of hyperthyroidism. She states she that she was told that she had an underlying mental illness. At that point, she was so weak and unable to stand up, secondary to racing heartbeats, near-syncope, and profound leg weakness that she ultimately ended up in a wheelchair. She also found that when her legs would be flat on the ground and not in the upright position, that she would become short of breath and weak. Ultimately, she has been confined to a reclined wheelchair since January 2017, or in her bed as a result of her condition described above. After her 6 week evaluation in [facility], her brought her to [place] where she was admitted to the hospital and underwent further workup for similar complaints. She reports that her workup in [place] was unremarkable with no unifying diagnosis to explain her symptoms. She recently left [facility] with her and 4 children and went to [place]. She was admitted to [facility] where there was no clear explanation for her symptoms either. She and her ultimately crossed the border in the [facility] into [place], [place], where she was admitted to hospital there. 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 Upon her arrival in [place], which is where she grew up since the age of 10, she was started on methimazole and propranolol. She has had normalization of her thyroid hormone levels. She is now off propranolol. Most recent TSH value of 0.343 with free T4 of 1.49 and free T3 of 3.88, which are within normal limits. The patient presented to [facility] yesterday after an episode of sudden onset of rapid heartbeat associated with chest pain and chest pressure prompting her to seek medical attention at [facility]. Troponin was negative x2. The patient also complains of difficulty with vision. She notices significant bilateral blurry vision. She also describes increase in the size of her hands and that her shoe size over the last 8 months has increased by a full size. She denies being evaluated for acromegaly or elevated growth hormone levels. She also describes rapid, sudden onset of elevated heart rate with pounding palpitations and diaphoresis. Serum metanephrines are pending at this time. She denies any complaints of PND, orthopnea, or lower extremity edema. Currently, at the time of my exam, she is in bed, resting comfortably. She does have significant bilateral lower extremity atrophy, secondary to being bedridden or wheelchair-bound since January 2017. PAST MEDICAL HISTORY: Prior to January 2017, was unremarkable. She does have thyroid nodules. Recent thyroid ultrasound done yesterday demonstrates multiple thyroid nodules with recommendation of fine-needle aspiration. PAST SURGICAL HISTORY: Includes rhinoplasty. FAMILY HISTORY: Her maternal grandfather of an acute myocardial infarction at the age of 48. Her mother has had multiple heart attacks in her 40s. Her mother also has a history of thyroid cancer. Her father has history of diabetes, but no known heart disease. She has 5 siblings who have no known heart disease and no symptoms similar to hers. SOCIAL HISTORY: She is . She has 4 children. She lives with her . She does not use IV drugs. She does not smoke or use marijuana. She does not drink alcohol and does not use caffeine. DATA: Complete 2D echocardiogram performed today demonstrates normal left ventricular function with no significant valvular abnormalities and normal pulmonary pressures. Atrial dimensions normal. Pharmacologic nuclear stress test performed today. Patient developed typical symptoms of shortness of breath with Lexiscan infusion with no ECG changes. Nuclear imaging demonstrates decreased uptake in the apical mid and basal anterior wall. Rest imaging is pending for tomorrow. Lab work demonstrates white blood cell count of 10.97, hemoglobin of 10.4, hematocrit 31.3, platelet count of 447. Sodium of 135, potassium 4.1, chloride of 110, bicarb 20, BUN 13, creatinine 0.6, magnesium 2.0. AST 14, ALT 22, alkaline phosphatase 48. Troponin negative x2. Total cholesterol 159, triglycerides 89, LDL 99, HDL 42. Plasma free normetanephrine and metanephrines pending. ECG demonstrates sinus rhythm with T-wave inversion isolated to V4, as well as lead III and aVF. Telemetry demonstrates sinus rhythm. PHYSICAL EXAMINATION: VITAL SIGNS: Blood pressure 107/62 previous value at 7 a.m. with blood pressure of 89/43, heart rate 85, in sinus rhythm, respiratory rate of 18, oxygen saturation 97% on room air. GENERAL: She is awake, alert, oriented, appropriate in no apparent distress. NECK: There is no evidence of JVP or carotid bruits. LUNGS: Clear to auscultation bilaterally. CARDIAC: S1 , S2. Regular rate and rhythm. No murmurs, rubs, or gallops. ABDOMEN: Soft, nontender, nondistended. There is no pulsatile mass or abdominal bruit. EXTREMITIES: The legs are significantly atrophied bilaterally. Distal pulses are intact bilaterally. There is no evidence of cyanosis, clubbing, or edema. IMPRESSION: 1. Atypical chest pain. 2. Palpitations. 3. Rapid onset of tachycardia consistent with supraventricular tachycardia. 4. Family history of premature coronary artery disease. 5. History of tachycardia mediated cardiomyopathy, which is resolved based off of today's echocardiogram. 6. History of hyperthyroidism. 7. Blurred vision. 8. Increased size in hands and feet over the last 8 months. 9. Blurred vision. 10. The patient is a pleasant 42-year-old female with multiple symptoms that all began in January 2017. She has been evaluated extensively, including 6 weeks of hospitalization in [facility], followed by hospitalization in [place], [place], as well as [place], [place] and now here at [facility] with new onset of substernal chest pain. In the setting of family history of premature coronary artery disease in a maternal grandfather, as well as her mother who had myocardial infarctions in her 40s, coupled with abnormal resting nuclear study concern for possible underlying coronary artery disease. Rest imaging pending in the morning. She also symptoms suggestive of supraventricular tachycardia. Would recommend a 4 week outpatient heart monitor. If this was unremarkable, would recommend implantable loop recorder. She has a constellation of symptoms also suggestive of multiple endocrine issues , including multiple thyroid nodules, known hyperthyroidism currently on methimazole, increased growth of her fingers and feet suggestive of elevated growth hormone levels, and onset of palpitations concerning for possible pheochromocytoma. Recommend Endocrine consultation. We will obtain growth hormone level at this time. We will also recommend MRI of the brain in the setting of worsening complaints of blurred vision. Her symptoms also are suggestive possibly of postural orthostatic tachycardia syndrome. Would recommend the above workup be completed before considering treatment for possible Postural orthostatic tachycardia syndrome. She is markedly deconditioned. I ultimately do not think that she will require a wheelchair long-term once she has a unifying diagnosis, regular followup, and completion of the above workup. PLAN: 1. Recommend Endocrine consult. 2. Recommend checking growth hormone level. 3. Resting nuclear imaging to be done tomorrow. 4. Consider Left Heart Cath depending on the results of nuclear stress test today 5. Note that lab work is pending for serum Normetanephrine and metanephrines. 6. Consider MRI of the brain. 7. Will continue to follow along with the patient's care. Over 1 hour was spent coordinating care, speaking with patient and her , as well as reviewing records and discussing with Hospitalist Service. /[id number]/MODL MTDD
[2017-10-19] MEDS ORDERED: GADOBUTROL 10 ML VIAL IVP ONE (17:55)
[2017-10-19] MEDS: SENNOSIDES/DOCUSATE SODIUM TAB PO SCH (21:44)
[2017-10-20 04:11] LABS: PLATELET COUNT 448 10^3/uL (150-400)
[2017-10-20] MEDS: SENNOSIDES/DOCUSATE SODIUM TAB PO SCH (09:24)
[2017-10-20] MEDS: PANTOPRAZOLE SODIUM 40 MG TAB PO SCH (09:24)
[2017-10-20] MEDS: ASPIRIN EC 325 MG TAB PO SCH (09:24)
[2017-10-20] MEDS: METHIMAZOLE 5 MG TAB PO SCH (09:24)
--- NOTE | 2017-10-20 10:47 | PDCARPN ---
Cardiology Progress Note Chief Complaint: Palpitations and SOB Assessment/Plan: Assessment: Lizbeth is a 42 y/o F who presents with 10 months of palpitations with associated SOB, chest pressure, and occasional syncope. She also has a history of hyperthyroidism with recent normalization in her thyroid panel. She has been hospitalized in 4 countries with similar complaints. At one point she was diagnosed with a tachy induced CMP with a EF of 40%. A echo this hospitalization shows a normalization in her EF. She is essentially wheelchair bound because her symptoms are so severe. She did have a SVT on tele at a rate of 150BPM. Plan: 1. SVT- with rates if 150 BPM. Start Dig .25 daily. She is scheduled for a EP study and ablation in two weeks. 2. Hyperthyroidism with normalization of her thyroid panel 3. CP- nuc is negative for ischemia. She has a history of premature family history of CAD 4. h/o tachy induced CMP with normalized EF by echo. Okay to d/c home from a cardiac standpoint. She will stop her digoxin 5 days prior to her ablation. She will receive a call from [facility] with further instructions. 10/20/17 13:40 Subjective: c/o palpitations with associated SOB with even minimal exertion. She denies any CP in the past 24 hours. Reviewed/Discussed With: multidisciplinary team Objective: Vital Signs (8 Hrs) Temp Pulse Resp BP Pulse Ox 10/20/17 08:00 36.3 C 97 16 105/65 99 10/20/17 04:00 36.5 C 69 16 92/53 L 97 Intake/Output (24 Hrs) 10/19/17 10/20/17 10/21/17 05:59 05:59 05:59 Intake Total 750 0 Balance 750 0 Intake: Oral (ml) 750 IV Intake (ml) 0 Other: Weight 54.295 kg Intake Quantity Yes Sufficient Number of Voids Toilet 5 Number of Stools Toilet 1 tele- SVT at a rate of 150 BPM Result Diagrams: 10/20/17 03:53 10/20/17 03:53 Cardiac Labs: Cardiac Lab Results (72 Hrs) 10/19/17 10/18/17 10/18/17 04:20 17:55 15:05 Troponin I < 0.012 < 0.012 Cancelled Telemetry: SVT with a rate of 150 BPM - Physical Exam Constitutional: WDWN Cardiovascular: regular rate and rhythm, no murmurs, no rubs, no gallops Peripheral Pulses: 2+: dorsalis-pedis (R), dorsalis-pedis (L) Respiratory: clear to auscultate bilat Skin: no edema Neurologic: AAOx3 ICD10 Worksheet Patient Problems: Problems Problem Status Onset Chest pain Acute Near syncope Acute
[2017-10-20 11:25] VITALS: BP 104/59
--- NOTE | 2017-10-20 11:42 | ASMTCMCOM ---
LETTY Note CM Note Notes: I went to speak with patient about discharge planning; she is defensive and feels that everyone asks them their plan, is then disappointed with it, but can't offer anything better. Patient appears to be saavy to the system of community resources. She and her children are both followed by practitioners in the [facility] system. Patient says she lived in [place] "her whole life" until moving to [facility] 8 years ago. When her symptoms began 8 months ago, she sought treatment in [facility], the [facility], then [place], then [place]. I wonder why she didn't come straight to [place], which is where she says she wants to live and receive care. When I ask if she has friends/family for support, she says they have no one. They do plan to stay in their RV when discharged ,maybe in [place]. Patient says they have money but are sick of paying for hotels. Her and children have not left the hospital since her admission. When I question her 4 ED visits in September, she again becomes defensive. She purports to not ultilizing the medical system more than she needs to, yet she has sought medical care in 4 countries in the past 8 months. I recommend a psychiatry/behavioral health consult and have notified hospitalist. Cardiac workup still pending; possible thyroid nodule bx also pending. Case Management will follow. Date Signed: 10/20/2017 11:41 AM Electronically Signed By:Ashly Flynn RN
[2017-10-20] MEDS ORDERED: DIGOXIN 250 MCG TAB PO SCH (12:00)
--- NOTE | 2017-10-20 14:32 | PDDCSUM ---
Discharge Summary Discharge Summary: Dates of service 10/18-10/20/17 Consultations: cardiology Procedures performed: nuclear stress test, echocardiogram, brain MRI, head/neck US Hospital course by problem: 42-year-old female presents with acute chest pain, tachycardia, lightheadedness found to have SVT Plan: # svt: started on dig and plan for EP study/ablation per Irene # Chest pain: at this time etiology unclear, stress test performed and initial read showing defect versus thinning in the anterior wall with plan for rest portion in am. Discussed with cardiology. # ? Cardiomyopathy: reported by patient as present previously, at this time echo showing normal global systolic function, no significant valvular heart disease # hyperthyroidism: on methimazole with T4/T3 within normal limits on arrival. Have arranged f/u with endocrinology for patient after discharge # thyroid nodules: with at least one concerning for malignancy, f/u with endocrinology established and plan for FNA this month # deconditioning: patient currently wheelchair bound due to dizzyness and feeling deconditioned, some perhaps related to SVT however seems that this is beyond those bouts. She has had extensive w/u at other hospitals, some of which results I have including mostly negative autoimmune w/u (EVELYNE +), negative spep/ upep, normal catecholamine levels, normal serum/urine immunofixation, cortisol stim normal. She has been told in the past it may all be psychiatric. Ongoing w/ u will be needed. Brain MRI w/wo negative DC home f/u with cardiology and endocrinology as scheduled. Recommended establishing care with PCP >35 min spent in dc more than half in coordination of care and counseling patient regarding f/u care plans
--- NOTE | 2017-10-20 14:53 | PDMN ---
Medical Necessity Medical necessity: change to IP;los>2mn for hyperthyroidism, thyroid nodule concerning for malignancy, possible cardiomyopathy, chest pain, and deconditioning/ wc bound r/t dizziness; requires further w/u/monitoring for multiple active issues; per order and progress note 10/19/17
--- NOTE | 2017-10-20 15:21 | ASMTDCNOTE ---
Case Management Discharge Discharge Order Complete? Answers: Yes Patient to Obtain Answers: via Family Medications Transportation Arranged Answers: Family/Friends Discharge Comments Notes: 10/20/2017 Case Management Note Phone call from [facility]. Arranged follow up appointment tomorrow FridayOctober [address] Muñiz at [phone]. Per [facility], pt stated she has an appointment set at [facility] on the [facility] in December. Referred pt to [facility] for supports after discharge. to transport home. Date Signed: 10/20/2017 02:59 PM Electronically Signed By:Roopa Duggan RN
--- NOTE | 2017-10-20 15:21 | ASMTCMCOM ---
CM Note CM Note Notes: 10/20/2017 Case Management Note Additional information to discharge note: Pt to attend outpatient Physical Therapy 3 times a week. Pt to have ablation procedure done as an outpatient. Per [facility], pt may be referred to [facility] Internal Medicine practice to address endocrine issues. Case Management Discharge 10/20/2017 Case Management Note Phone call from [facility]. Arranged follow up appointment tomorrow FridayOctober [address] Muñiz at [phone]. Per [facility], pt stated she has an appointment set at [facility] on the [facility] in December. Referred pt to [facility] for supports after discharge. to transport home. Date Signed: 10/20/2017 03:11 PM Electronically Signed By:Roopa Duggan RN
--- NOTE | 2017-10-20 15:21 | ASDISCHSUM ---
Discharge Information Plan Status:Home with No Needs Medically Cleared to Leave:10/20/2017 Discharge Date:10/20/2017 CM D/C Disposition:Home, Routine, Self-Care ADT D/C Disposition: Projected Discharge Date:10/20/2017 Transportation at D/C:Family Discharge Delay Reason: Follow-Up Date:10/20/2017 Discharge Slot: Final Diagnosis: Placement Information Patient Contact Information Contact Name:ROHAN Relationship: Address:[address] Phone: City:[place] Alternate Phone: State/Zip Code:[place] [address] Email: Financial Information Financial Class:Medicaid Primary Plan Desc:[employer] HE[employer] FIRST [employer] Primary Plan Number:[id number] Secondary Plan Desc: Secondary Plan Number: Assessment Information LACE LACE Length of stay for Answers: 1 day current admission Acuity / Level of Answers: No Care: Did the patient have an inpatient admission? Comorbidities - select Answers: Other Notes: Hyperthyroid all that apply # of Emergency department Answers: 3-4 visits in the last 6 months Social determinants Answers: Lack of community resources and/or lack of social support (no pcp, lives alone, transportation, maday d) Score: 9 Date Signed: 10/20/2017 03:00 PM Electronically Signed By:Roopa Duggan RN [facility] CM Progress Note CM Note CM Note Notes: Pt admitted for CP. Pt recently moved back from [place] in August. She reported to RN that she has been W/C bound due to shortness of breath since Jan. .Met with pt, and 3 of her 4 children. They have not been able to afford a place to stay in the area. They had been staying in a hotel but recently bought an RV that they plan to live in. They do yet lnow where they will park it. They are receiving food stamps and WIC.They have been refused help from [employer] b/c pt's not allowed to work b/c he does not have a green card. Pt and appear to have no ophthalmic medical technician plans pending resolution of pt's health symptoms. CM will continue to follow. Date Signed: 10/19/2017 12:19 PM Electronically Signed By:Cleopatra Saravia LCSW [facility] CM Progress Note CM Note CM Note Notes: I went to speak with patient about discharge planning; she is defensive and feels that everyone asks them their plan, is then disappointed with it, but can't offer anything better. Patient appears to be saavy to the system of community resources. She and her children are both followed by practitioners in the [facility] system. Patient says she lived in [place] "her whole life" until moving to [facility] 8 years ago. When her symptoms began 8 months ago, she sought treatment in [facility], the [facility], then [place], then [place]. I wonder why she didn't come straight to [place], which is where she says she wants to live and receive care. When I ask if she has friends/family for support, she says they have no one. They do plan to stay in their RV when discharged ,maybe in [place]. Patient says they have money but are sick of paying for hotels. Her and children have not left the hospital since her admission. When I question her 4 ED visits in September, she again becomes defensive. She purports to not ultilizing the medical system more than she needs to, yet she has sought medical care in 4 countries in the past 8 months. I recommend a psychiatry/behavioral health consult and have notified hospitalist. Cardiac workup still pending; possible thyroid nodule bx also pending. Case Management will follow. Date Signed: 10/20/2017 11:41 AM Electronically Signed By:Ashly Flynn RN Case Management Discharge Plan Note Case Management Discharge Discharge Order Complete? Answers: Yes Patient to Obtain Answers: via Family Medications Transportation Arranged Answers: Family/Friends Discharge Comments Notes: 10/20/2017 Case Management Note Phone call from [facility]. Arranged follow up appointment tomorrow FridayOctober [address] Muñiz at [phone]. Per [facility], pt stated she has an appointment set at [facility] on the [facility] in December. Referred pt to [facility] for supports after discharge. to transport home. Date Signed: 10/20/2017 02:59 PM Electronically Signed By:Roopa Duggan RN Intervention Information
--- NOTE | 2017-10-20 17:31 | PDCARCONS ---
Cardiology Consult Reason for Consult: Electrophysiology consultation Chief Complaint: Palpitations Requesting Physician: Hospitalist team, Naheed OSORIO History of Present Illness: 42-year-old female who has been experiencing intermittent palpitations for the past 9 months. 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 She was treated with propranolol but has continued to have palpitations despite maximally tolerated beta-jose therapy. As such her baseline systolic blood pressures are between 90-110 mm of mercury and she has orthostatic lightheadedness and therefore only tolerated 10 mg daily of propranolol. Episodes happen several times a month, 3-4 of these episodes last for more than an hour. [place]nam episodes happen more frequently. She has associated lightheadedness. She has not had syncope. History Information - Allergies/Home Medication List Allergies/Adverse Reactions: tetracycline [Tetracycline] Allergy (Verified 10/18/17 15:53) Hives Home Medications: Herbals/Supplements -Info Only 1 ea PO DAILY 10/18/17 [Last Taken Unknown] Methimazole [Tapazole 5MG (*)] 20 mg PO BID@10/18/17 [Last Taken 10/18/17] Selenium [Selenium 200mcg (*)] 200 mcg PO DAILY 10/18/17 [Last Taken 10/18/17] Past Medical History: - Social History Smoking Status: Never smoked Alcohol Use: None Drug Use: None Physical Exam Physical Exam: Temp Pulse Resp BP Pulse Ox 36.9 C 86 16 104/59 L 97 10/20/17 11:18 10/20/17 12:24 10/20/17 11:18 10/20/17 11:20 10/20/17 11:18 Constitutional: no apparent distress, appears nourished Eyes: PERRL, EOMI Ears, Nose, Mouth, Throat: moist mucous membranes, hearing normal Cardiovascular: regular rate and rhythym Respiratory: no respiratory distress Gastrointestinal: normoactive bowel sounds Neurologic: AAOx3 Psychiatric: interacting appropriately, not anxious, not encephalopathic, thought process linear Lab and Imaging 10/20/17 03:53 10/20/17 03:53 WBC 9.53 10^3/uL (3.80-9.50) H 10/20/17 03:53 RBC 3.98 10^6/uL (4.18-5.33) L 10/20/17 03:53 Hgb 10.5 g/dL (12.6-16.3) L 10/20/17 03:53 Hct 31.3 % (38.0-47.0) L 10/20/17 03:53 MCV 78.6 fL (81.5-99.8) L 10/20/17 03:53 MCH 26.4 pg (27.9-34.1) L 10/20/17 03:53 MCHC 33.5 g/dL (32.4-36.7) 10/20/17 03:53 RDW 14.4 % (11.5-15.2) 10/20/17 03:53 Plt Count 448 10^3/uL (150-400) H 10/20/17 03:53 MPV 9.3 fL (8.7-11.7) 10/20/17 03:53 Neut % (Auto) 53.2 % (39.3-74.2) 10/20/17 03:53 Lymph % (Auto) 35.7 % (15.0-45.0) 10/20/17 03:53 [place] % (Auto) 7.0 % (4.5-13.0) 10/20/17 03:53 Eos % (Auto) 3.7 % (0.6-7.6) 10/20/17 03:53 Baso % (Auto) 0.2 % (0.3-1.7) L 10/20/17 03:53 Nucleat RBC Rel Count 0.0 % (0.0-0.2) 10/20/17 03:53 Absolute Neuts (auto) 5.07 10^3/uL (1.70-6.50) 10/20/17 03:53 Absolute Lymphs (auto) 3.40 10^3/uL (1.00-3.00) H 10/20/17 03:53 Absolute Monos (auto) 0.67 10^3/uL (0.30-0.80) 10/20/17 03:53 Absolute Eos (auto) 0.35 10^3/uL (0.03-0.40) 10/20/17 03:53 Absolute Basos (auto) 0.02 10^3/uL (0.02-0.10) 10/20/17 03:53 Absolute Nucleated RBC 0.00 10^3/uL (0-0.01) 10/20/17 03:53 Immature Gran % 0.2 % (0.0-1.1) 10/20/17 03:53 Immature Gran # 0.02 10^3/uL (0.00-0.10) 10/20/17 03:53 D-Dimer 0.41 ug/mLFEU (0.00-0.50) 10/18/17 14:00 Sodium 139 mEq/L (135-145) 10/20/17 03:53 Potassium 4.0 mEq/L (3.3-5.0) 10/20/17 03:53 Chloride 107 mEq/L (97-110) 10/20/17 03:53 Carbon Dioxide 20 mEq/l (22-31) L 10/20/17 03:53 Anion Gap 12 mEq/L (8-16) 10/20/17 03:53 BUN 13 mg/dL (7-23) 10/20/17 03:53 Creatinine 0.6 mg/dL (0.6-1.0) 10/20/17 03:53 Estimated GFR > 60 10/20/17 03:53 Glucose 91 mg/dL (70-100) 10/20/17 03:53 Calcium 9.5 mg/dL (8.5-10.4) 10/20/17 03:53 Magnesium 2.0 mg/dL (1.6-2.3) 10/19/17 04:20 Total Bilirubin 0.9 mg/dL (0.1-1.4) 10/19/17 04:20 AST 14 IU/L (14-46) 10/19/17 04:20 ALT 22 IU/L (9-52) 10/19/17 04:20 Alkaline Phosphatase 48 IU/L (38-126) 10/19/17 04:20 POC Troponin I 0.00 ng/mL (0.00-0.08) 10/18/17 15:13 Troponin I < 0.012 ng/mL (0.000-0.034) 10/19/17 04:20 Total Protein 6.3 g/dL (6.3-8.2) 10/19/17 04:20 Albumin 3.5 g/dL (3.5-5.0) 10/19/17 04:20 Triglycerides 89 mg/dL (35-135) 10/19/17 04:20 Cholesterol 159 mg/dL (140-200) 10/19/17 04:20 Cholesterol Risk Factr 0.8 (0.2-1.0) 10/19/17 04:20 LDL Cholesterol, Calc 99 mg/dL (70-100) 10/19/17 04:20 LDL Risk Factor 0.8 (0.2-1.0) 10/19/17 04:20 VLDL Cholesterol 18 mg/dL (8-25) 10/19/17 04:20 Non-HDL Cholesterol 117 mg/dL (90-129) 10/19/17 04:20 HDL Cholesterol 42 mg/dL (40-95) 10/19/17 04:20 LDL/HDL Ratio 2.36 RATIO (1.00-3.22) 10/19/17 04:20 Cholesterol/HDL Ratio 3.79 RATIO (1.00-4.44) 10/19/17 04:20 Lipase 111 IU/L (23-300) 10/18/17 15:31 TSH 0.343 uIU/mL (0.465-4.680) L 10/18/17 15:05 Free T4 1.49 ng/dL (0.59-2.19) 10/18/17 15:05 Free T3 3.88 pg/mL (2.77-5.27) 10/18/17 15:05 EKG additional interpertation: Normal sinus rhythm. No ventricular pre- excitation. Telemetry: Supraventricular tachycardia, heart rate 140 beats per minute, gradual warm up phenomenon. 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 A/P Assessment: 1. Hyperthyroidism, treated. 2. Family history of coronary artery disease, negative myocardial perfusion stress test 3. Supraventricular tachycardia Plan: 42-year-old female with hyperthyroidism that has been adequately treated, family history of coronary artery disease. She recently had myocardial perfusion stress test that was reported as normal. The LV ejection fraction is normal. She does not tolerate high-dose AV dave blocking agents because of orthostatic symptoms and baseline low blood pressure. Today I am going to start her on digoxin 0.25 mg daily. In the long-term, she would benefit from ablation procedure, this has been scheduled for 2 weeks from now. She will stop her digoxin 5 days before the procedure. Risks of the procedure reviewed with her at length-, mi, stroke, cardiac tamponade, AV block requiring permanent pacemaker implantation, vascular access complications, deep venous thrombosis, pulmonary embolism, infection. She had a bad experience with general anesthetic 9 years ago, she is requesting that the procedure be done fully awake. Differential diagnosis of her long RP tachycardia includes atrial tachycardia, atypical AVNRT or orthodromic AVRT. We discussed that about 30% of patients will need a transseptal puncture for ablation of left-sided accessory pathway. Patient's RN and Naheed OSORIO were present in the room at the time of this discussion.
== END 2017-10-20 15:28 | disposition home or self-care (01) | DRG 201 ==
LOC: F2W 16:40 → OBSVTOIN 10-19 14:04
PROVIDERS: ADMIT Internal Medicine; ATTEND Internal Medicine
DX: I47.1 Supraventricular tachycardia (principal); I42.9 Cardiomyopathy, unspecified; E05.00 Thyrotoxicosis with diffuse goiter without thyrotoxic crisis or storm; Z82.49 Family history of ischemic heart disease and other diseases of the circulatory system; R00.2 Palpitations; H53.8 Other visual disturbances; R60.9 Edema, unspecified; Z99.3 Dependence on wheelchair
CPT/HCPCS: 83003-90; 83835-90; 84305-90; 84481-90; 84484-PO; 97162-GP; 97165-GO; 97530-GO; 97530-GP; A9500; A9585; G0378; J2785

== ENCOUNTER 2017-10-24 13:14 | Emergency (ER) | payer MEDICAID ==
[2017-10-24] MEDS ORDERED: NS 1,000 ML IV ONE (13:49)
--- NOTE | 2017-10-24 13:53 | EDPHY ---
H & P Stated Complaint: Left CP and SVT since last night, SOB and dehydration. Time Seen by Provider: 10/24/17 13:39 HPI/ROS: CHIEF COMPLAINT: Dehydration, SVT episodes HISTORY OF PRESENT ILLNESS: The patient is a 42-year-old female a history of SVT who is scheduled to have ablation with Dr. Bonilla in 1 week. She states that she was having an hour long episode of SVT last night and that she thinks it is exacerbated by dehydration. She states she cannot understand why she is dehydrated because she is drinking a lot of water and is urinating normally. She has not had a fever. No vomiting or diarrhea. She does have a history of hyperthyroidism and is appropriately treated. She was admitted 2 weeks ago for chest pain and had a negative nuclear stress test and normal echocardiogram. She called the cardiac nurse's today and told him that her SVT was happening more frequently and they recommended she come here for hydration. REVIEW OF SYSTEMS: Constitutional: denies: chills, fever, recent illness, recent injury EENTM: denies: blurred vision, double vision, nose congestion Respiratory: denies: cough, shortness of breath Cardiac: See HPI Gastrointestinal/Abdominal: denies: abdominal pain, diarrhea, nausea, vomiting, blood streaked stools Genitourinary: denies: dysuria, frequency, hematuria, pain Musculoskeletal: denies: joint pain, muscle pain Skin: denies: lesions, rash, jaundice, bruising Neurological: denies: headache, numbness, paresthesia, tingling, dizziness, weakness Hematologic/Lymphatic: denies: blood clots, easy bleeding, easy bruising Immunologic/allergic: denies: HIV/AIDS, transplant EXAM: GENERAL: Well-appearing, well-nourished and in no acute distress. HEAD: Atraumatic, normocephalic. EYES: Pupils equal round and reactive to light, extraocular movements intact, sclera anicteric, conjunctiva are normal. ENT: TMs normal, nares patent, oropharynx clear without exudates. Moist mucous membranes. NECK: Normal range of motion, supple without lymphadenopathy or JVD. LUNGS: Breath sounds clear to auscultation bilaterally and equal. No wheezes rales or rhonchi. HEART: Regular rate and rhythm without murmurs, rubs or gallops. ABDOMEN: Soft, nontender, normoactive bowel sounds. No guarding, no rebound. No masses appreciated. BACK: No CVA tenderness, no spinal tenderness, step-offs or deformities EXTREMITIES: Normal range of motion, no pitting or edema. No clubbing or cyanosis. NEUROLOGICAL: Cranial nerves II through XII grossly intact. Normal speech, normal gait. 5/5 strength, normal movement in all extremities, normal sensation PSYCH: Normal mood, normal affect. SKIN: Warm, dry, normal turgor, no visible rashes or lesions. Source: Patient Exam Limitations: No limitations - Personal History LMP (Females 10-55): 15-21 Days Ago Current Tetanus Diphtheria and Acellular Pertussis (TDAP): Yes - Medical/Surgical History Hx Asthma: No Hx Chronic Respiratory Disease: No Hx Diabetes: No Hx Cardiac Disease: Yes Hx Renal Disease: No Hx Cirrhosis: No Hx Alcoholism: No Hx HIV/AIDS: No Hx Splenectomy or Spleen Trauma: No Other PMH: hyperthyroidism, cardiomyopathy, dehydration, anemia. - Family History Significant Family History: No pertinent family hx - Social History Smoking Status: Never smoked Alcohol Use: Sober Drug Use: None Constitutional: Initial Vital Signs Temperature (C) 36.8 C 10/24/17 13:19 Heart Rate 88 10/24/17 13:19 Respiratory Rate 20 10/24/17 13:19 Blood Pressure 121/90 H 10/24/17 13:19 O2 Sat (%) 99 10/24/17 13:19 O2 Delivery Mode Room Air Allergies/Adverse Reactions: tetracycline [Tetracycline] Allergy (Verified 10/18/17 15:53) Hives Home Medications: Medication Instructions Recorded Herbals/Supplements -Info Only 1 ea PO DAILY 10/18/17 Methimazole [Tapazole 5MG (*)] 20 mg PO BID@10,22 10/18/17 Selenium [Selenium 200mcg (*)] 200 mcg PO DAILY 10/18/17 Acetaminophen [Tylenol 325mg (*)] 650 mg PO Q4HRS PRN tab 10/20/17 Aspirin EC [Aspirin EC 325 mg (*)] 325 mg PO DAILY tab 10/20/17 Digoxin [Lanoxin 250 mcg (RX)] 250 mcg PO DAILY AT 10AM #30 tab 10/20/17 Polyethylene Glycol 3350 [Miralax 17 gm PO DAILY PRN pkt 10/20/17 17 gm (*)] Sennosides/Docusate Sodium 1 - 2 tab PO BID tab 10/20/17 [Senokot-S] Medical Decision Making - Diagnostics EKG Interpretation: An EKG obtained and was read and documented in trace view. Please see trace view for full reading and report. Sinus rhythm, no acute ischemic changes, nonspecific T-wave inversions similar to previous ED Course/Re-evaluation: Patient's lab tests are reassuring. She is asymptomatic currently. We discussed follow-up with cardiology as planned. She will call back to have her TSH results although I would expect them to be abnormal considering her medications for hyperthyroidism. She declines further observation and is eager to go home. Differential Diagnosis: Partial list of the Differential diagnosis considered include but were not limited to; SVT, anxiety, dehydration and although unlikely based on the history and physical exam, I also considered acute coronary disease, dissection. I discussed these differential diagnoses and the plan with the patient as well as the usual and expected course. The patient understands that the diagnosis is provisional and that in medicine we are not always correct and that further workup is often warranted. Usual and customary warnings were given. All of the patient's questions were answered. The patient was instructed to return to the emergency department should the symptoms at all worsen or return, otherwise to followup with the physician as we discussed. - Data Points Laboratory Results: Laboratory Results 10/24/17 14:10 10/24/17 Unknown 10/24/17 10/24/17 10/24/17 Unknown 14:10 14:05 WBC 9.18 10^3/uL 10^3/uL (3.80-9.50) RBC 4.87 10^6/uL 10^6/uL (4.18-5.33) Hgb 12.8 g/dL g/dL (12.6-16.3) Hct 37.9 % L % (38.0-47.0) MCV 77.8 fL L fL (81.5-99.8) MCH 26.3 pg L pg (27.9-34.1) MCHC 33.8 g/dL g/dL (32.4-36.7) RDW 14.3 % % (11.5-15.2) Plt Count 475 10^3/uL H 10^3/uL (150-400) MPV 9.7 fL fL (8.7-11.7) Neut % (Auto) 62.5 % % (39.3-74.2) Lymph % (Auto) 27.9 % % (15.0-45.0) [place] % (Auto) 7.6 % % (4.5-13.0) Eos % (Auto) 1.5 % % (0.6-7.6) Baso % (Auto) 0.3 % % (0.3-1.7) Nucleat RBC Rel Count 0.0 % % (0.0-0.2) Absolute Neuts (auto) 5.73 10^3/uL 10^3/uL (1.70-6.50) Absolute Lymphs (auto) 2.56 10^3/uL 10^3/uL (1.00-3.00) Absolute Monos (auto) 0.70 10^3/uL 10^3/uL (0.30-0.80) Absolute Eos (auto) 0.14 10^3/uL 10^3/uL (0.03-0.40) Absolute Basos (auto) 0.03 10^3/uL 10^3/uL (0.02-0.10) Absolute Nucleated RBC 0.00 10^3/uL 10^3/uL (0-0.01) Immature Gran % 0.2 % % (0.0-1.1) Immature Gran # 0.02 10^3/uL 10^3/uL (0.00-0.10) Sodium 138 mEq/L mEq/L (135-145) Potassium 3.8 mEq/L mEq/L (3.3-5.0) Chloride 108 mEq/L mEq/L (97-110) Carbon Dioxide 19 mEq/l L mEq/l (22-31) Anion Gap 11 mEq/L mEq/L (8-16) BUN 13 mg/dL mg/dL (7-23) Creatinine 0.6 mg/dL mg/dL (0.6-1.0) Estimated GFR > 60 Glucose 89 mg/dL mg/dL (70-100) Calcium 10.2 mg/dL mg/dL (8.5-10.4) POC Troponin I 0.00 ng/mL ng/mL (0.00-0.08) TSH Pending Free T4 1.32 ng/dL ng/dL (0.59-2.19) Free T3 3.68 pg/mL pg/mL (2.77-5.27) Medications Given: Discontinued Medications Sodium Chloride (Ns) 1,000 mls @ 0 mls/hr IV EDNOW ONE; Wide Open PRN Reason: Protocol Stop: 10/24/17 13:50 Last Admin: 10/24/17 13:59 Dose: 1,000 mls Point of Care Test Results: Chemistry 10/24/17 14:05 POC Troponin I 0.00 ng/mL ng/mL (0.00-0.08) Departure - Departure Disposition: Home, Routine, Self-Care Clinical Impression: Dehydration Condition: Fair Instructions: Dehydration (ED) Referrals: Nae Muñiz MD [Primary Care Provider] - As per Instructions Jv Bonilla MD [Medical Doctor] - As per Instructions
--- NOTE | 2017-10-24 14:03 | CPEKG ---
Heart Rate: 78 RR Interval: 769 P-R Interval: 176 QRSD Interval: 80 QT Interval: 364 QTC Interval: 415 P [place]: 78 QRS [place]: 41 T Wave [place]: -51 EKG Severity - ABNORMAL ECG - EKG Impression: SINUS RHYTHM EKG Impression: NONSPECIFIC T ABNORMALITIES, DIFFUSE LEADS EKG Impression: Similar to previous Electronically Signed By: Ronaldo Link 24-Oct-2017 14:24:09
[2017-10-24 14:17] LABS: PLATELET COUNT 475 10^3/uL (150-400)
[2017-10-24 15:30] VITALS: BP 101/59
== END 2017-10-24 15:36 | disposition home or self-care (01) ==
DX: E86.0 Dehydration (principal); E86.9 Volume depletion, unspecified; Z79.82 Long term (current) use of aspirin
CPT/HCPCS: 84481-90; 84484-PO